=== PATIENT | male | born 1985 | race African-American/Black ===

== ENCOUNTER → 2016-03-24 | Outpatient (CLI) | payer OTHER ==
[~2016-03-24] MED LIST: ANAPROX DS550 MG PO; DARVOCET N 1001 TAB PO; HYDR12.5C PO; HYDR25T PO; HYDROCHLOROTHIA50 M1 PO; K-TAB20 MEQ PO; LISINOPRIL-HYDR1 TA1 PO; LOPRESSOR25 MG PO; MOTRIN800 MG PO; Motrin,Rufen800 MG PO; PRILOSEC20 M2 PO; STRIBILD TABLE1 EACH PO; ULTRAM50 MG PO; ZESTORETIC 12.51 TA1 PO; ZOFRAN ODT4 MG SL; Zofran4 MG PO
== END | disposition home or self-care (01) ==
LOC: RESCLI 02:31
DX: I10 Essential (primary) hypertension (principal); I16.0 Hypertensive urgency; J01.00 Acute maxillary sinusitis, unspecified; I48.91 Unspecified atrial fibrillation; Z21 Asymptomatic human immunodeficiency virus [HIV] infection status

== ENCOUNTER 2016-05-28 04:37 | Emergency (ER) | payer SELFPAY ==
[~2016-05-28] VITALS: Ht 182.8 cm; Wt 92.1 kg
[~2016-05-28 04:37] MED LIST changes: -ANAPROX DS550 MG PO; -ULTRAM50 MG PO
[2016-05-28] MEDS ORDERED: ANAPROX DS550 MG PO (05:46)
[2016-05-28] MEDS ORDERED: ULTRAM50 MG PO (05:46)
== END 2016-05-28 06:13 | disposition home or self-care (01) ==
LOC: ED 04:37
DX: S93.401A Sprain of unspecified ligament of right ankle, initial encounter (principal); F17.200 Nicotine dependence, unspecified, uncomplicated; I10 Essential (primary) hypertension; Z79.899 Other long term (current) drug therapy; X58.XXXA Exposure to other specified factors, initial encounter; Y93.89 Activity, other specified; Y92.89 Other specified places as the place of occurrence of the external cause; Y99.9 Unspecified external cause status

== ENCOUNTER 2016-07-05 21:39 | Inpatient (IN) | payer SELFPAY ==
[~2016-07-05] VITALS: Ht 185.4 cm; Wt 86.8 kg
[~2016-07-05 21:39] MED LIST changes: +ANAPROX DS550 MG PO; +ULTRAM50 MG PO
[2016-07-05 21:45] VITALS: BP 166/118
[2016-07-05 22:14] LABS: BASO % 0.2 % (0.0-1.0); EOS # 0.1 10*3/uL (0.0-0.4); EOS % 0.6 % (1.0-4.0); HEMATOCRIT 44.9 % (42.0-52.0); HEMOGLOBIN 15.4 g/dl (14.0-18.0); LYMPH # 2.6 10*3/uL (1.3-4.4); LYMPH % 27.3 % (27.0-41.0); MEAN CELL VOLUME 88.7 fl (80.0-94.0); MEAN CORPUSCULAR HGB 30.4 pg (27.0-31.0); MEAN CORPUSCULAR HGB CONC 34.3 g/dl (33.0-37.0); MEAN PLATELET VOLUME 9.7 fl (9.6-12.3); MONO # 0.6 10*3/uL (0.1-1.0); MONO % 6.4 % (3.0-9.0); NEUT # 6.3 10*3/uL (2.3-7.9); NEUT % 65.3 % (47.0-73.0); PLATELET COUNT AUTOMATED 249 10*3/uL (130-400); RED BLOOD COUNT 5.06 10*6/uL (4.50-5.90); RED CELL DISTRI WIDTH 12.7 % (0-14.5); WHITE BLOOD COUNT 9.7 10*3/uL (4.8-10.8)
[2016-07-05 22:26] LABS: ALBUMIN 4.5 gm/dl (3.1-4.5); ALKALINE PHOSPHATASE 77 U/L (45-117); BILIRUBIN, TOTAL 0.9 mg/dl (0.2-1.0); BUN 10 mg/dl (7-24); CARBON DIOXIDE 22 mmol/L (21-32); CHLORIDE 101 mmol/L (98-107); EST GLOM FILT AFRICAN AMERICAN > 60 ml/min; GLUCOSE 131 mg/dL (65-99); POTASSIUM 3.4 mmol/L (3.5-5.1); SGOT/AST 53 IU/L (3-35); SGPT/ALT 106 U/L (12-78); SODIUM 136 mmol/L (136-145); TOTAL PROTEIN 8.9 gm/dL (6.4-8.2)
[2016-07-05 22:50] VITALS: BP 162/96
[2016-07-05 23:00] VITALS: BP 168/88
[2016-07-05 23:25] VITALS: BP 168/88
[2016-07-06] VITALS (7 sets, daily range): BP systolic 148–166; BP diastolic 72–102
[2016-07-06 00:45] LABS: CKMB < 0.5 ng/ml (0.5-3.6); CPK 177 U/L (39-308); TROPONIN I < 0.015 ng/ml (<0.045)
[2016-07-06 06:35] LABS: BASO % 0.1 % (0.0-1.0); CKMB 0.7 ng/ml (0.5-3.6); CPK 154 U/L (39-308); EOS # 0.1 10*3/uL (0.0-0.4); EOS % 1.2 % (1.0-4.0); HEMATOCRIT 41.8 % (42.0-52.0); HEMOGLOBIN 14.2 g/dl (14.0-18.0); LYMPH % 37.5 % (27.0-41.0); MEAN CELL VOLUME 89.9 fl (80.0-94.0); MEAN CORPUSCULAR HGB 30.5 pg (27.0-31.0); MEAN PLATELET VOLUME 9.8 fl (9.6-12.3); MONO # 0.7 10*3/uL (0.1-1.0); MONO % 8.2 % (3.0-9.0); NEUT # 4.2 10*3/uL (2.3-7.9); NEUT % 52.8 % (47.0-73.0); PLATELET COUNT AUTOMATED 233 10*3/uL (130-400); RED BLOOD COUNT 4.65 10*6/uL (4.50-5.90); RED CELL DISTRI WIDTH 12.7 % (0-14.5)
[2016-07-06 06:45] LABS: TROPONIN I < 0.015 ng/ml (<0.045)
[2016-07-06 06:53] LABS: PROTHROMBIN TIME 10.8 SECONDS (9.0-12.4)
[2016-07-06 07:05] LABS: ALBUMIN 3.9 gm/dl (3.1-4.5); BILIRUBIN, TOTAL 0.9 mg/dl (0.2-1.0); BUN 9 mg/dl (7-24); CARBON DIOXIDE 25 mmol/L (21-32); CHLORIDE 102 mmol/L (98-107); CHOLESTEROL 236 mg/dL (<200); EST GLOM FILT AFRICAN AMERICAN > 60 ml/min; FREE T4 0.78 ng/dl (0.76-1.46); GLUCOSE 97 mg/dL (65-99); MAGNESIUM 2.4 mg/dL (1.5-2.1); POTASSIUM 3.6 mmol/L (3.5-5.1); SGOT/AST 41 IU/L (3-35); SGPT/ALT 87 U/L (12-78); SODIUM 137 mmol/L (136-145); TRIGLYCERIDES 327 mg/dl (<150); VLDL CHOLESTEROL 65 mg/dL (6-40)
[2016-07-06 07:12] LABS: ALKALINE PHOSPHATASE 69 U/L (45-117); HDL CHOLESTEROL 59 mg/dl (40-60); LDL CHOLESTEROL 112 mg/dL (9-159); PHOSPHOROUS 3.2 mg/dL (2.5-4.9); TOTAL PROTEIN 7.8 gm/dL (6.4-8.2)
[2016-07-06 08:51] LABS: HEMOGLOBIN A1c 5.2 % (4.8-5.6)
[2016-07-06 10:39] LABS: VITAMIN D, 25-HYDROXY 7.7 ng/mL (30-100)
[2016-07-06 10:40] LABS: FOLIC ACID 18.43 ng/mL (>5.38)
[2016-07-06 12:15] LABS: CPK 140 U/L (39-308)
[2016-07-06 12:16] LABS: CKMB < 0.5 ng/ml (0.5-3.6); TROPONIN I < 0.015 ng/ml (<0.045)
[2016-07-07] VITALS: BP 158/98
[2016-07-07 08:00] VITALS: BP 148/100
[2016-07-07 12:00] VITALS: BP 148/102
[2016-07-07] MEDS ORDERED: ATORVASTATIN CA40 M1 PO (12:10)
[2016-07-07] MEDS ORDERED: D-1000 185 MG-11 TAB PO (12:10)
[2016-07-07] MEDS ORDERED: HYDR25T PO (12:10)
[2016-07-07] MEDS ORDERED: Zestril,Prinivi40 MG PO (12:10)
[2016-07-07 14:18] VITALS: BP 138/82
== END 2016-07-07 14:25 | disposition home or self-care (01) | DRG 871 ==
LOC: ED 21:39 → EDHOLD 22:32 → 4E 22:45
PROVIDERS: Internal Medicine; Student in an Organized Health Care Education/Training Program
DX: A41.9 Sepsis, unspecified organism (principal); K85.90 Acute pancreatitis without necrosis or infection, unspecified; N39.0 Urinary tract infection, site not specified; F17.200 Nicotine dependence, unspecified, uncomplicated; E55.9 Vitamin D deficiency, unspecified; F10.20 Alcohol dependence, uncomplicated; E78.2 Mixed hyperlipidemia; I10 Essential (primary) hypertension; E87.6 Hypokalemia; Z82.5 Family history of asthma and other chronic lower respiratory diseases; Z82.49 Family history of ischemic heart disease and other diseases of the circulatory system; Z83.3 Family history of diabetes mellitus; Z79.899 Other long term (current) drug therapy

== ENCOUNTER → 2016-10-14 | Outpatient (CLI) | payer OTHER ==
[~2016-10-14] MED LIST changes: +ATORVASTATIN CA40 M1 PO; +D-1000 185 MG-11 TAB PO; +Zestril,Prinivi40 MG PO
== END | disposition home or self-care (01) ==
LOC: RESCLI 10-13 03:11
DX: I10 Essential (primary) hypertension (principal); I16.0 Hypertensive urgency; K21.9 Gastro-esophageal reflux disease without esophagitis; E78.5 Hyperlipidemia, unspecified; I48.91 Unspecified atrial fibrillation; Z21 Asymptomatic human immunodeficiency virus [HIV] infection status

== ENCOUNTER 2017-04-14 17:41 | Emergency (ER) | payer OTHER ==
[~2017-04-14] VITALS: Wt 86.2 kg
[2017-04-14 18:20] LABS: BASO % 0.4 % (0.0-1.0); EOS # 0.1 10*3/uL (0.0-0.4); EOS % 1.5 % (1.0-4.0); HEMATOCRIT 43.5 % (42.0-52.0); LYMPH # 2.9 10*3/uL (1.3-4.4); MEAN CELL VOLUME 88.1 fl (80.0-94.0); MEAN CORPUSCULAR HGB 30.4 pg (27.0-31.0); MEAN CORPUSCULAR HGB CONC 34.5 g/dl (33.0-37.0); MEAN PLATELET VOLUME 9.8 fl (9.6-12.3); MONO # 0.6 10*3/uL (0.1-1.0); NEUT # 3.4 10*3/uL (2.3-7.9); PLATELET COUNT AUTOMATED 235 10*3/uL (130-400); RED BLOOD COUNT 4.94 10*6/uL (4.50-5.90); RED CELL DISTRI WIDTH 13.4 % (0-14.5); WHITE BLOOD COUNT 7.2 10*3/uL (4.8-10.8)
[2017-04-14 18:38] LABS: ALBUMIN 3.8 gm/dl (3.1-4.5); ALKALINE PHOSPHATASE 50 U/L (45-117); BUN 10 mg/dl (7-24); CHLORIDE 104 mmol/L (98-107); CREATININE 1.06 mg/dL (0.70-1.30); LIPASE 471 U/L (73-393); POTASSIUM 4.5 mmol/L (3.5-5.1); SGOT/AST 32 IU/L (3-35); SGPT/ALT 53 U/L (12-78); SODIUM 137 mmol/L (136-145); TOTAL PROTEIN 7.6 gm/dL (6.4-8.2)
[2017-04-14] MEDS ORDERED: Zofran4 MG PO (18:51)
== END 2017-04-14 18:59 | disposition home or self-care (01) ==
LOC: ED 17:41
PROVIDERS: Physician Assistant
DX: K86.1 Other chronic pancreatitis (principal); R10.9 Unspecified abdominal pain; F17.200 Nicotine dependence, unspecified, uncomplicated; Z79.899 Other long term (current) drug therapy

== ENCOUNTER 2017-04-15 17:20 | Emergency (ER) | payer OTHER ==
[~2017-04-15] VITALS: Ht 182.8 cm; Wt 86.2 kg
[2017-04-15 19:03] LABS: BASO % 0.1 % (0.0-1.0); EOS # 0.1 10*3/uL (0.0-0.4); EOS % 1.7 % (1.0-4.0); HEMATOCRIT 46.1 % (42.0-52.0); HEMOGLOBIN 15.9 g/dl (14.0-18.0); LYMPH % 35.5 % (27.0-41.0); MEAN CELL VOLUME 86.8 fl (80.0-94.0); MEAN CORPUSCULAR HGB 29.9 pg (27.0-31.0); MEAN CORPUSCULAR HGB CONC 34.5 g/dl (33.0-37.0); MEAN PLATELET VOLUME 9.8 fl (9.6-12.3); MONO # 0.6 10*3/uL (0.1-1.0); MONO % 7.1 % (3.0-9.0); NEUT # 4.6 10*3/uL (2.3-7.9); NEUT % 55.4 % (47.0-73.0); PLATELET COUNT AUTOMATED 264 10*3/uL (130-400); RED BLOOD COUNT 5.31 10*6/uL (4.50-5.90); RED CELL DISTRI WIDTH 13.4 % (0-14.5); WHITE BLOOD COUNT 8.3 10*3/uL (4.8-10.8)
[2017-04-15 19:13] LABS: ACT PARTIAL THROMBO TIME 26.2 SECONDS (20.8-31.5); INTERNATIONAL NORM RATIO 0.9 (2.0-3.5)
[2017-04-15 19:27] LABS: ALBUMIN 4.1 gm/dl (3.1-4.5); ALKALINE PHOSPHATASE 52 U/L (45-117); BUN 15 mg/dl (7-24); CHLORIDE 102 mmol/L (98-107); CREATININE 1.51 mg/dL (0.70-1.30); LIPASE 208 U/L (73-393); POTASSIUM 3.9 mmol/L (3.5-5.1); SGOT/AST 26 IU/L (3-35); SGPT/ALT 49 U/L (12-78); SODIUM 137 mmol/L (136-145)
== END 2017-04-15 23:26 | disposition home or self-care (01) ==
LOC: ED 17:20
PROVIDERS: Emergency Medicine
DX: K92.2 Gastrointestinal hemorrhage, unspecified (principal); E78.5 Hyperlipidemia, unspecified; I10 Essential (primary) hypertension; F17.200 Nicotine dependence, unspecified, uncomplicated; Z79.899 Other long term (current) drug therapy

== ENCOUNTER 2017-05-19 10:43 | Inpatient (IN) | payer OTHER ==
[~2017-05-19] VITALS: Ht 180.3 cm; Wt 83.3 kg
[2017-05-19 10:55] VITALS: BP 148/78
[2017-05-19 11:18] LABS: BASO % 0.2 % (0.0-1.0); EOS % 0.4 % (1.0-4.0); HEMOGLOBIN 15.5 g/dl (14.0-18.0); LYMPH # 2.8 10*3/uL (1.3-4.4); LYMPH % 28.6 % (27.0-41.0); MEAN CELL VOLUME 87.1 fl (80.0-94.0); MEAN CORPUSCULAR HGB 29.4 pg (27.0-31.0); MEAN CORPUSCULAR HGB CONC 33.7 g/dl (33.0-37.0); MEAN PLATELET VOLUME 9.7 fl (9.6-12.3); MONO # 0.6 10*3/uL (0.1-1.0); MONO % 6.3 % (3.0-9.0); NEUT # 6.2 10*3/uL (2.3-7.9); NEUT % 64.3 % (47.0-73.0); PLATELET COUNT AUTOMATED 263 10*3/uL (130-400); RED BLOOD COUNT 5.28 10*6/uL (4.50-5.90); RED CELL DISTRI WIDTH 13.5 % (0-14.5); WHITE BLOOD COUNT 9.7 10*3/uL (4.8-10.8)
[2017-05-19 11:32] LABS: ALBUMIN 4.4 gm/dl (3.1-4.5); ALKALINE PHOSPHATASE 51 U/L (45-117); BUN 14 mg/dl (7-24); CHLORIDE 99 mmol/L (98-107); CREATININE 1.22 mg/dL (0.70-1.30); POTASSIUM 3.4 mmol/L (3.5-5.1); SGOT/AST 36 IU/L (3-35); SGPT/ALT 43 U/L (12-78); SODIUM 136 mmol/L (136-145); TOTAL PROTEIN 8.3 gm/dL (6.4-8.2)
[2017-05-19] MEDS ORDERED: ZESTORETIC 20-1 EACH PO (15:04)
[2017-05-19 16:00] VITALS: BP 169/115
[2017-05-19 20:00] VITALS: BP 139/79
[2017-05-20] VITALS (7 sets, daily range): BP systolic 128–146; BP diastolic 81–98
[2017-05-20 07:49] LABS: BASO % 0.3 % (0.0-1.0); EOS # 0.2 10*3/uL (0.0-0.4); EOS % 2.3 % (1.0-4.0); HEMATOCRIT 40.2 % (42.0-52.0); HEMOGLOBIN 13.6 g/dl (14.0-18.0); LYMPH # 3.5 10*3/uL (1.3-4.4); LYMPH % 46.2 % (27.0-41.0); MEAN CELL VOLUME 90.1 fl (80.0-94.0); MEAN CORPUSCULAR HGB 30.5 pg (27.0-31.0); MEAN CORPUSCULAR HGB CONC 33.8 g/dl (33.0-37.0); MEAN PLATELET VOLUME 9.9 fl (9.6-12.3); MONO # 0.6 10*3/uL (0.1-1.0); MONO % 7.5 % (3.0-9.0); NEUT # 3.3 10*3/uL (2.3-7.9); NEUT % 43.4 % (47.0-73.0); PLATELET COUNT AUTOMATED 227 10*3/uL (130-400); RED BLOOD COUNT 4.46 10*6/uL (4.50-5.90); RED CELL DISTRI WIDTH 13.9 % (0-14.5); WHITE BLOOD COUNT 7.5 10*3/uL (4.8-10.8)
[2017-05-20 08:02] LABS: ACT PARTIAL THROMBO TIME 25.7 SECONDS (20.8-31.5)
[2017-05-20 08:09] LABS: ALBUMIN 3.5 gm/dl (3.1-4.5); ALKALINE PHOSPHATASE 41 U/L (45-117); BUN 12 mg/dl (7-24); CHLORIDE 108 mmol/L (98-107); CHOLESTEROL 197 mg/dL (<200); CREATININE 1.04 mg/dL (0.70-1.30); HDL CHOLESTEROL 39 mg/dl (40-60); LDL CHOLESTEROL 131 mg/dL (9-159); LIPASE 437 U/L (73-393); PHOSPHOROUS 2.7 mg/dL (2.5-4.9); POTASSIUM 4.1 mmol/L (3.5-5.1); SGOT/AST 27 IU/L (3-35); SGPT/ALT 38 U/L (12-78); SODIUM 141 mmol/L (136-145); TOTAL PROTEIN 6.8 gm/dL (6.4-8.2); TRIGLYCERIDES 134 mg/dl (<150); VLDL CHOLESTEROL 27 mg/dL (6-40)
[2017-05-20 09:21] LABS: VITAMIN D, 25-HYDROXY 8.8 ng/mL (30-100)
[2017-05-21] VITALS: BP 143/91
[2017-05-21 07:19] LABS: BASO % 0.4 % (0.0-1.0); EOS # 0.1 10*3/uL (0.0-0.4); EOS % 1.8 % (1.0-4.0); HEMOGLOBIN 12.4 g/dl (14.0-18.0); LYMPH # 4.1 10*3/uL (1.3-4.4); LYMPH % 58.3 % (27.0-41.0); MEAN CELL VOLUME 90.2 fl (80.0-94.0); MEAN CORPUSCULAR HGB 30.2 pg (27.0-31.0); MEAN CORPUSCULAR HGB CONC 33.5 g/dl (33.0-37.0); MEAN PLATELET VOLUME 9.9 fl (9.6-12.3); MONO # 0.4 10*3/uL (0.1-1.0); MONO % 5.9 % (3.0-9.0); NEUT # 2.4 10*3/uL (2.3-7.9); NEUT % 33.5 % (47.0-73.0); PLATELET COUNT AUTOMATED 219 10*3/uL (130-400); RED CELL DISTRI WIDTH 13.7 % (0-14.5); WHITE BLOOD COUNT 7.1 10*3/uL (4.8-10.8)
[2017-05-21 07:48] LABS: BUN 7 mg/dl (7-24); CHLORIDE 105 mmol/L (98-107); CREATININE 0.92 mg/dL (0.70-1.30); LIPASE 238 U/L (73-393); POTASSIUM 3.8 mmol/L (3.5-5.1); SODIUM 138 mmol/L (136-145)
[2017-05-21 08:00] VITALS: BP 136/88
[2017-05-21 12:00] VITALS: BP 146/89
[2017-05-21] MEDS ORDERED: GENVOYA TABLET1 EACH PO (13:49)
== END 2017-05-21 15:02 | disposition home or self-care (01) | DRG 438 ==
LOC: ED 10:43 → 5E 14:23 → EDHOLD 14:23 → 5E 14:24
PROVIDERS: Internal Medicine Nephrology; Nurse Practitioner
DX: K85.90 Acute pancreatitis without necrosis or infection, unspecified (principal); K65.9 Peritonitis, unspecified; D72.818 Other decreased white blood cell count; E87.6 Hypokalemia; E80.6 Other disorders of bilirubin metabolism; Z21 Asymptomatic human immunodeficiency virus [HIV] infection status; R73.9 Hyperglycemia, unspecified; I10 Essential (primary) hypertension; E55.9 Vitamin D deficiency, unspecified; E78.5 Hyperlipidemia, unspecified; K86.1 Other chronic pancreatitis; F17.210 Nicotine dependence, cigarettes, uncomplicated; Z82.5 Family history of asthma and other chronic lower respiratory diseases; Z87.19 Personal history of other diseases of the digestive system; Z82.49 Family history of ischemic heart disease and other diseases of the circulatory system; Z79.899 Other long term (current) drug therapy; Z71.6 Tobacco abuse counseling

== ENCOUNTER → 2017-06-07 | Outpatient (CLI) | payer OTHER ==
[~2017-06-07] MED LIST changes: +GENVOYA TABLET1 EACH PO; +ZESTORETIC 20-1 EACH PO
== END | disposition home or self-care (01) ==
LOC: RESCLI 00:34
DX: K21.9 Gastro-esophageal reflux disease without esophagitis (principal); I10 Essential (primary) hypertension; E55.9 Vitamin D deficiency, unspecified; K85.80 Other acute pancreatitis without necrosis or infection; Z21 Asymptomatic human immunodeficiency virus [HIV] infection status; Z72.0 Tobacco use; Z71.6 Tobacco abuse counseling

== ENCOUNTER 2017-07-09 06:03 | Emergency (ER) | payer OTHER ==
[~2017-07-09] VITALS: Ht 172.7 cm; Wt 83.9 kg
[2017-07-09] MEDS ORDERED: SEPTDS PO (06:26)
== END 2017-07-09 06:42 | disposition home or self-care (01) ==
LOC: ED 06:03
DX: R07.89 Other chest pain (principal); J40 Bronchitis, not specified as acute or chronic; I10 Essential (primary) hypertension; E78.5 Hyperlipidemia, unspecified; F17.200 Nicotine dependence, unspecified, uncomplicated; Z79.899 Other long term (current) drug therapy

== ENCOUNTER 2017-08-23 21:33 | Inpatient (IN) | payer MEDICAID ==
[~2017-08-23] VITALS: Ht 185.4 cm; Wt 77.7 kg
[~2017-08-23 21:33] MED LIST changes: +SEPTDS PO
[2017-08-23 21:40] VITALS: BP 178/101
[2017-08-23 21:54] VITALS: BP 176/117
[2017-08-23 22:19] VITALS: BP 176/117
[2017-08-23 22:36] LABS: BASO % 0.1 % (0.0-1.0); EOS % 0.1 % (1.0-4.0); HEMATOCRIT 51.3 % (42.0-52.0); HEMOGLOBIN 17.1 g/dl (14.0-18.0); LYMPH # 1.8 10*3/uL (1.3-4.4); LYMPH % 22.4 % (27.0-41.0); MEAN CELL VOLUME 89.2 fl (80.0-94.0); MEAN CORPUSCULAR HGB 29.7 pg (27.0-31.0); MEAN CORPUSCULAR HGB CONC 33.3 g/dl (33.0-37.0); MEAN PLATELET VOLUME 9.9 fl (9.6-12.3); MONO # 0.7 10*3/uL (0.1-1.0); MONO % 8.8 % (3.0-9.0); NEUT # 5.4 10*3/uL (2.3-7.9); NEUT % 68.3 % (47.0-73.0); PLATELET COUNT AUTOMATED 274 10*3/uL (130-400); RED BLOOD COUNT 5.75 10*6/uL (4.50-5.90); RED CELL DISTRI WIDTH 14.1 % (0-14.5); WHITE BLOOD COUNT 7.9 10*3/uL (4.8-10.8)
[2017-08-23 22:52] LABS: ALBUMIN 4.3 gm/dl (3.1-4.5); ALKALINE PHOSPHATASE 66 U/L (45-117); BUN 14 mg/dl (7-24); CHLORIDE 105 mmol/L (98-107); LIPASE 716 U/L (73-393); POTASSIUM 4.1 mmol/L (3.5-5.1); SGOT/AST 27 IU/L (3-35); SGPT/ALT 50 U/L (12-78); SODIUM 140 mmol/L (136-145)
[2017-08-24] VITALS (7 sets, daily range): BP systolic 142–170; BP diastolic 82–101
[2017-08-24 13:27] LABS: BILIRUBIN 1+ (NEGATIVE); BLOOD NEGATIVE (NEGATIVE); CLARITY CLEAR (CLEAR); COLOR YELLOW (YELLOW); GLUCOSE NEGATIVE (NEGATIVE); KETONE TRACE (NEGATIVE); LEUKO ESTERASE NEGATIVE (NEGATIVE); NITRITE NEGATIVE (NEGATIVE); SPECIFIC GRAVITY 1.015 (1.005-1.030)
[2017-08-24 13:38] LABS: MUCOUS 1+; RBC 0-2 rbc/hpf (0-2); WBC 0-2 wbc/hpf (0-5)
== END 2017-08-24 21:42 | disposition left against medical advice (07) | DRG 440 ==
LOC: ED 21:33 → EDHOLD 08-24 02:13 → 5E 08-24 02:13
PROVIDERS: Emergency Medicine Emergency Medical Services
DX: K85.20 Alcohol induced acute pancreatitis without necrosis or infection (principal); E83.41 Hypermagnesemia; R00.1 Bradycardia, unspecified; R06.82 Tachypnea, not elsewhere classified; R73.9 Hyperglycemia, unspecified; Z21 Asymptomatic human immunodeficiency virus [HIV] infection status; E78.5 Hyperlipidemia, unspecified; I10 Essential (primary) hypertension; Z72.0 Tobacco use; Z83.3 Family history of diabetes mellitus; Z80.9 Family history of malignant neoplasm, unspecified; Z82.49 Family history of ischemic heart disease and other diseases of the circulatory system; Z84.89 Family history of other specified conditions

== ENCOUNTER 2018-12-07 11:47 | Inpatient (IN) | payer OTHER ==
[~2018-12-07] VITALS: Ht 182.8 cm; Wt 78.1 kg
[~2018-12-07 11:47] MED LIST changes: +CELEXA20 MG PO; +ROPINIROLE HYD0.5 MG PO
[2018-12-07 12:43] VITALS: BP 142/99
--- NOTE | 2018-12-07 12:43 | NUR ---
A 33, admitted to , under the services of JAYLEEN Forte DO with a diagnosis of OPIATE WITHDRAWAL. Chief complaint is WITHRAWAL. Patient arrived via ambulatory from [place]. Monitor applied. Initial assessment completed. Vital signs taken and recorded. JAYLEEN FORTE DO notified of admission to the unit. Orders received. See assessment for past medical history, medications and allergies. Patient and/or family oriented to unit. RAE Simmons.[facility] visitation policy reviewed. Clothing/patient valuable form completed. FLORIN RODRIGUEZ
--- NOTE | 2018-12-07 13:15 | NUR ---
DR. SOOD STATED THAT THE PATIENT DOES NOT NEED AN IV AT THIS TIME.
[2018-12-07 13:22] LABS: BASO % 0.2 % (0.0-1.0); EOS # 0.2 10*3/uL (0.0-0.4); EOS % 2.2 % (1.0-4.0); HEMATOCRIT 40.8 % (42.0-52.0); HEMOGLOBIN 13.4 g/dl (14.0-18.0); LYMPH # 2.9 10*3/uL (1.3-4.4); LYMPH % 34.5 % (27.0-41.0); MEAN CELL VOLUME 87.2 fl (80.0-94.0); MEAN CORPUSCULAR HGB 28.6 pg (27.0-31.0); MEAN CORPUSCULAR HGB CONC 32.8 g/dl (33.0-37.0); MEAN PLATELET VOLUME 9.3 fl (9.6-12.3); MONO # 0.6 10*3/uL (0.1-1.0); MONO % 7.4 % (3.0-9.0); NEUT # 4.6 10*3/uL (2.3-7.9); NEUT % 55.5 % (47.0-73.0); PLATELET COUNT AUTOMATED 302 10*3/uL (130-400); RED BLOOD COUNT 4.68 10*6/uL (4.50-5.90); RED CELL DISTRI WIDTH 14.7 % (0-14.5); WHITE BLOOD COUNT 8.3 10*3/uL (4.8-10.8)
[2018-12-07 13:29] LABS: INTERNATIONAL NORM RATIO 0.9 (2.0-3.5)
[2018-12-07 13:34] LABS: ALBUMIN 3.5 gm/dl (3.1-4.5); ALKALINE PHOSPHATASE 64 U/L (45-117); BUN 10 mg/dl (7-24); CHLORIDE 105 mmol/L (98-107); CREATININE 0.89 mg/dL (0.70-1.30); ETHYL ALCOHOL < 3.0 mg/dl (<3); POTASSIUM 3.7 mmol/L (3.5-5.1); SGOT/AST 20 IU/L (3-35); SGPT/ALT 25 U/L (12-78); SODIUM 136 mmol/L (136-145); TOTAL PROTEIN 7.9 gm/dL (6.4-8.2)
--- NOTE | 2018-12-07 13:45 | NUR ---
INTO ROOM TO TELL HIM THAT I NEED URINE SAMPLE. NAME CALLED. AFTER FIVE TIMES HE AROUSES SLOWLY AND ATTEMPTS TO OPEN EYES.
--- NOTE | 2018-12-07 15:01 | NUR ---
INTO ROOM, DROWSY. PHONE IS UP TO EAR WITH NO DIAL TONE.
[2018-12-07 15:14] LABS: BILIRUBIN NEGATIVE (NEGATIVE); BLOOD NEGATIVE (NEGATIVE); CLARITY CLEAR (CLEAR); COLOR YELLOW (YELLOW); GLUCOSE NEGATIVE (NEGATIVE); KETONE NEGATIVE (NEGATIVE); LEUKO ESTERASE NEGATIVE (NEGATIVE); NITRITE NEGATIVE (NEGATIVE); PH 6.5 (5.0-9.0); UROBILINOGEN 0.2 E.U./dl (0.2-1.0)
[2018-12-07 15:26] LABS: URINE AMPHETAMINES < 1000 (1000ng/ml); URINE BARBITURATES < 200 (200ng/ml); URINE BENZODIAZEPINES > 200 (200ng/ml); URINE CANNABINOIDS (THC) < 50 (50ng/ml); URINE COCAINE > 300 (300ng/ml); URINE METHADONE < 300 (300ng/ml); URINE OPIATES < 300 (300ng/ml)
[2018-12-07 15:32] LABS: URINE PHENCYCLIDINE < 25 (25ng/ml)
[2018-12-07 16:00] VITALS: BP 160/100
--- NOTE | 2018-12-07 17:42 | NUR ---
DR. SOOD NOTIFIED OF BLOOD PRESSURE. SHE WILL PUT ORDERS IN.
--- NOTE | 2018-12-07 17:44 | NUR ---
ORDERED TO GIVE SUBUTEX.
--- NOTE | 2018-12-07 17:56 | NUR ---
PATIENT MEETS [facility]. CINA=[id number]. PATIENT WANTS TO FOLLOW UP WITH [facility] IN [place] FOR OUTPATIENT TREATMENT. VINICIO HINKLE B.A. ROTO MIXER OPERATOR
[2018-12-07 20:00] VITALS: BP 158/82
[2018-12-08] VITALS: BP 163/105
[2018-12-08 08:00] VITALS: BP 153/96
--- NOTE | 2018-12-08 11:27 | NUR ---
PATIENT IS GOING TO FOLLOW UP WITH [facility] FOR MAT SERVICES. [place] STAFF WILL FOLLOW UP WITH PATIENT. VINICIO HINKLE B.A. INTAKE COORDIANTOR
[2018-12-08 16:00] VITALS: BP 148/97
--- NOTE | 2018-12-08 17:14 | NUR ---
ROUTINE SUBUTEX GIVEN AT THIS TIME. PT DENIES ANY NEED FOR PRN MEDS. WILL CONTINUE TO MONITOR. CALL LIGHT WITHIN REACH.
[2018-12-08 20:00] VITALS: BP 140/88; BP 143/94
--- NOTE | 2018-12-08 20:17 | NUR ---
Patient displaying withdrawal symptoms, including: irritability, anxiousness, restlessness and agitation. Scheduled/PRN medications provided, SEE EMAR. Will continue to monitor medication effectiveness.
--- NOTE | 2018-12-08 20:37 | NUR ---
24 HR chart check completed.
--- NOTE | 2018-12-08 23:00 | NUR ---
Patient resting. Responding to scheduled medications with fewer complaints of pain and anxiety.
[2018-12-09] VITALS: BP 129/56
--- NOTE | 2018-12-09 00:30 | NUR ---
SLEEPING. NO ACUTE DISTRESS NOTED. RESPIRATIONS EASY. VSS. CALL LIGHT WITHIN REACH
--- NOTE | 2018-12-09 03:00 | NUR ---
Patient SLEEPING. Responding to scheduled medications with fewer complaints of pain and anxiety.
--- NOTE | 2018-12-09 06:00 | NUR ---
Patient resting. Responding to scheduled medications with fewer complaints of pain and anxiety.
[2018-12-09 08:00] VITALS: BP 131/88
[2018-12-09 16:00] VITALS: BP 141/96
--- NOTE | 2018-12-09 16:19 | NUR ---
PATIENT IS GOING TO FOLLOW UP WITH [facility] FOR HIS AFTERCARE PLAN. PATIENT AGREES AND UNDERSTANDS HIS AFTERCARE PLAN. VINICIO HINKLE B.A. AGRICULTURAL ENGINEERING TEACHER
--- NOTE | 2018-12-09 19:38 | NUR ---
24 HR chart check completed.
[2018-12-09 20:00] VITALS: BP 133/81
--- NOTE | 2018-12-09 22:00 | NUR ---
Patient resting. Responding to scheduled medications with fewer complaints of pain and anxiety.
[2018-12-10] VITALS: BP 126/84
--- NOTE | 2018-12-10 00:30 | NUR ---
SLEEPING. NO DISTRESS NOTED. RESPIRATIONS EASY. VSS. CALL LIGHT WITHIN REACH
--- NOTE | 2018-12-10 06:00 | NUR ---
slept throughout night with no distress noted. respirations easy. call light within reach. no voiced complaints this shift
[2018-12-10 06:54] LABS: BASO % 0.3 % (0.0-1.0); EOS # 0.1 10*3/uL (0.0-0.4); EOS % 1.8 % (1.0-4.0); HEMATOCRIT 41.9 % (42.0-52.0); HEMOGLOBIN 13.6 g/dl (14.0-18.0); LYMPH # 3.8 10*3/uL (1.3-4.4); LYMPH % 52.7 % (27.0-41.0); MEAN CELL VOLUME 85.7 fl (80.0-94.0); MEAN CORPUSCULAR HGB 27.8 pg (27.0-31.0); MEAN CORPUSCULAR HGB CONC 32.5 g/dl (33.0-37.0); MEAN PLATELET VOLUME 9.6 fl (9.6-12.3); MONO # 0.5 10*3/uL (0.1-1.0); MONO % 7.5 % (3.0-9.0); NEUT # 2.7 10*3/uL (2.3-7.9); NEUT % 37.6 % (47.0-73.0); PLATELET COUNT AUTOMATED 288 10*3/uL (130-400); RED BLOOD COUNT 4.89 10*6/uL (4.50-5.90); RED CELL DISTRI WIDTH 14.6 % (0-14.5); WHITE BLOOD COUNT 7.2 10*3/uL (4.8-10.8)
[2018-12-10 07:09] LABS: CREATININE 1.03 mg/dL (0.70-1.30)
[2018-12-10 08:00] VITALS: BP 126/75
--- NOTE | 2018-12-10 11:28 | NUR ---
[facility] Discharge instructions reviewed with patient/family. Patient receptive and verbalizes understanding. Follow-up care arranged. Written instructions given to patient/family. KYE BOWMAN
== END 2018-12-10 11:30 | disposition home or self-care (01) | DRG 773 ==
LOC: 5E 11:47
PROVIDERS: ADMIT Family Medicine
DX: F11.23 Opioid dependence with withdrawal (principal); I10 Essential (primary) hypertension; E78.5 Hyperlipidemia, unspecified; F17.210 Nicotine dependence, cigarettes, uncomplicated; F14.10 Cocaine abuse, uncomplicated; E55.9 Vitamin D deficiency, unspecified; Z21 Asymptomatic human immunodeficiency virus [HIV] infection status; K86.0 Alcohol-induced chronic pancreatitis; Z83.3 Family history of diabetes mellitus; Z82.49 Family history of ischemic heart disease and other diseases of the circulatory system; Z84.89 Family history of other specified conditions; Z79.899 Other long term (current) drug therapy; Z71.6 Tobacco abuse counseling

== ENCOUNTER 2019-01-06 17:44 | Inpatient (IN) | payer OTHER ==
[~2019-01-06] VITALS: Ht 182.9 cm; Wt 77.1 kg
[2019-01-06 17:44] VITALS: BP 152/106
--- NOTE | 2019-01-06 17:55 | NUR ---
MEDIC STUDENT AT BEDSIDE TO ASSESS AND PLACE IV
--- NOTE | 2019-01-06 18:51 | NUR ---
PT TO CT
[2019-01-06 18:57] LABS: BASO % 0.2 % (0.0-1.0); EOS # 0.1 10*3/uL (0.0-0.4); EOS % 1.7 % (1.0-4.0); HEMATOCRIT 38.5 % (42.0-52.0); HEMOGLOBIN 12.6 g/dl (14.0-18.0); LYMPH # 2.7 10*3/uL (1.3-4.4); LYMPH % 41.5 % (27.0-41.0); MEAN CELL VOLUME 87.5 fl (80.0-94.0); MEAN CORPUSCULAR HGB 28.6 pg (27.0-31.0); MEAN CORPUSCULAR HGB CONC 32.7 g/dl (33.0-37.0); MEAN PLATELET VOLUME 9.3 fl (9.6-12.3); MONO # 0.7 10*3/uL (0.1-1.0); MONO % 10.5 % (3.0-9.0); NEUT # 2.9 10*3/uL (2.3-7.9); NEUT % 45.9 % (47.0-73.0); PLATELET COUNT AUTOMATED 229 10*3/uL (130-400); RED CELL DISTRI WIDTH 14.8 % (0-14.5); WHITE BLOOD COUNT 6.4 10*3/uL (4.8-10.8)
--- NOTE | 2019-01-06 19:03 | NUR ---
RETURN FROM CT. CONDITION STABLE.
--- NOTE | 2019-01-06 19:12 | NUR ---
PROVIDED PT WITH URINAL AND INSTRUCTED TO LEAVE URINE SPECIMEN. VERBALIZED UNDERSTANDING.
[2019-01-06 19:14] LABS: ALBUMIN 3.6 gm/dl (3.1-4.5); ALKALINE PHOSPHATASE 63 U/L (45-117); BUN 12 mg/dl (7-24); CHLORIDE 98 mmol/L (98-107); CREATININE 1.11 mg/dL (0.70-1.30); LIPASE 125 U/L (73-393); POTASSIUM 3.4 mmol/L (3.5-5.1); SGOT/AST 154 IU/L (3-35); SGPT/ALT 347 U/L (12-78); SODIUM 134 mmol/L (136-145); TOTAL PROTEIN 7.5 gm/dL (6.4-8.2)
--- NOTE | 2019-01-06 19:17 | NUR ---
LA 2.1 MATEUSZ AWARE
[2019-01-06 20:27] LABS: BILIRUBIN NEGATIVE (NEGATIVE); BLOOD NEGATIVE (NEGATIVE); CLARITY CLEAR (CLEAR); COLOR YELLOW (YELLOW); GLUCOSE NEGATIVE (NEGATIVE); KETONE NEGATIVE (NEGATIVE); LEUKO ESTERASE NEGATIVE (NEGATIVE); NITRITE NEGATIVE (NEGATIVE); PH 7.5 (5.0-9.0); UROBILINOGEN 0.2 E.U./dl (0.2-1.0)
[2019-01-06 21:00] VITALS: BP 148/90
[2019-01-06 21:44] VITALS: BP 125/91
--- NOTE | 2019-01-06 21:44 | NUR ---
Time: 2143 A 33 year old MALE admitted to 5E under services of JUAQUIN FUNK DO. Pt. arrived via wheel chair from ER. Chief complaint: ABDOMINAL PAIN. RAFAL CASEY
[2019-01-06] MEDS ORDERED: GENVOYA TABLET1 EACH PO (21:56)
--- NOTE | 2019-01-06 21:58 | NUR ---
NOTIFIED DR. AGUILAR THAT PATIENT'S MED REC IS UP TO DATE AND PATIENT ASKING TO EAT SINCE HE IS NOT NAUSEOUS AND IS NOT HAVING PAIN. DR. AGUILAR STATED TO KEEP HIM NPO.
[2019-01-07] VITALS: BP 148/95
--- NOTE | 2019-01-07 00:45 | NUR ---
PATIENT ASLEEP IN BED. IV FLUIDS INFUSING ORDERED. RESPIRATIONS EVEN AND UNLABORED. CALL LIGHT WITHIN REACH.
--- NOTE | 2019-01-07 01:52 | NUR ---
24 HR chart check completed.
[2019-01-07 06:32] LABS: BASO % 0.2 % (0.0-1.0); EOS # 0.1 10*3/uL (0.0-0.4); EOS % 2.3 % (1.0-4.0); HEMATOCRIT 36.4 % (42.0-52.0); HEMOGLOBIN 11.7 g/dl (14.0-18.0); LYMPH # 2.4 10*3/uL (1.3-4.4); LYMPH % 42.7 % (27.0-41.0); MEAN CELL VOLUME 87.1 fl (80.0-94.0); MEAN CORPUSCULAR HGB CONC 32.1 g/dl (33.0-37.0); MEAN PLATELET VOLUME 9.6 fl (9.6-12.3); MONO # 0.7 10*3/uL (0.1-1.0); MONO % 12.7 % (3.0-9.0); NEUT # 2.4 10*3/uL (2.3-7.9); NEUT % 41.9 % (47.0-73.0); PLATELET COUNT AUTOMATED 232 10*3/uL (130-400); RED BLOOD COUNT 4.18 10*6/uL (4.50-5.90); RED CELL DISTRI WIDTH 15.3 % (0-14.5); WHITE BLOOD COUNT 5.6 10*3/uL (4.8-10.8)
[2019-01-07 06:59] LABS: ALKALINE PHOSPHATASE 63 U/L (45-117); BUN 11 mg/dl (7-24); CHLORIDE 107 mmol/L (98-107); CREATININE 0.89 mg/dL (0.70-1.30); PHOSPHOROUS 3.7 mg/dL (2.5-4.9); POTASSIUM 4.1 mmol/L (3.5-5.1); SGOT/AST 149 IU/L (3-35); SGPT/ALT 307 U/L (12-78); SODIUM 139 mmol/L (136-145); TOTAL PROTEIN 6.5 gm/dL (6.4-8.2)
[2019-01-07 08:00] VITALS: BP 139/100
[2019-01-07 12:00] VITALS: BP 115/81; BP 133/87
--- NOTE | 2019-01-07 16:00 | NUR ---
PATIENT PULLED OUT IV, STATED LEAVING AMA, SIGNED AMA PAPER AND LEFT, AMBULATORY TO FRONT LOBBY FOR HIS RIDE HOME. NURSING BEER MERCHANT AND PHYSICIAN NOTIFIED.
== END 2019-01-07 16:05 | disposition left against medical advice (07) | DRG 426 ==
LOC: ED 17:44 → EDHOLD 20:52 → 5E 21:28
PROVIDERS: Physician Assistant; Student in an Organized Health Care Education/Training Program; ADMIT Emergency Medicine
DX: E87.1 Hypo-osmolality and hyponatremia (principal); K85.90 Acute pancreatitis without necrosis or infection, unspecified; D64.9 Anemia, unspecified; E87.6 Hypokalemia; R73.9 Hyperglycemia, unspecified; E87.2 Acidosis; R74.0 Nonspecific elevation of levels of transaminase and lactic acid dehydrogenase [LDH]; Z21 Asymptomatic human immunodeficiency virus [HIV] infection status; Z53.29 Procedure and treatment not carried out because of patient's decision for other reasons; K21.9 Gastro-esophageal reflux disease without esophagitis; E55.9 Vitamin D deficiency, unspecified; I10 Essential (primary) hypertension; E78.5 Hyperlipidemia, unspecified; K86.1 Other chronic pancreatitis; F17.210 Nicotine dependence, cigarettes, uncomplicated; Z71.6 Tobacco abuse counseling; Z83.3 Family history of diabetes mellitus; Z82.49 Family history of ischemic heart disease and other diseases of the circulatory system; Z83.438 Family history of other disorder of lipoprotein metabolism and other lipidemia; Z80.8 Family history of malignant neoplasm of other organs or systems; Z84.89 Family history of other specified conditions

== ENCOUNTER → 2019-03-31 | Outpatient (CLI) | payer OTHER ==
[2019-03-31 13:54] LABS: HEMATOCRIT 42.4 % (42.0-52.0); HEMOGLOBIN 13.8 g/dl (14.0-18.0); MEAN CELL VOLUME 86.4 fl (80.0-94.0); MEAN CORPUSCULAR HGB 28.1 pg (27.0-31.0); MEAN CORPUSCULAR HGB CONC 32.5 g/dl (33.0-37.0); MEAN PLATELET VOLUME 9.7 fl (9.6-12.3); RED BLOOD COUNT 4.91 10*6/uL (4.50-5.90); RED CELL DISTRI WIDTH 14.4 % (0-14.5); WHITE BLOOD COUNT 5.5 10*3/uL (4.8-10.8)
[2019-03-31 14:26] LABS: ALBUMIN 3.8 gm/dl (3.1-4.5); BUN 11 mg/dl (7-24); CHLORIDE 108 mmol/L (98-107); CHOLESTEROL 229 mg/dL (<200); CREATININE 1.11 mg/dL (0.70-1.30); HDL CHOLESTEROL 54 mg/dl (40-60); LDL CHOLESTEROL 156 mg/dL (9-159); POTASSIUM 4.1 mmol/L (3.5-5.1); SGOT/AST 38 IU/L (3-35); SGPT/ALT 65 U/L (12-78); SODIUM 137 mmol/L (136-145); TOTAL PROTEIN 7.9 gm/dL (6.4-8.2); TRIGLYCERIDES 96 mg/dl (<150); VLDL CHOLESTEROL 19 mg/dL (6-40)
[2019-03-31 14:32] LABS: ALKALINE PHOSPHATASE 57 U/L (45-117)
[2019-04-01 05:05] LABS: HEPATITIS B SURFACE AG Negative (Negative)
[2019-04-04 09:43] LABS: HEPATITIS C VIRUS ANTIBODY >11.0 s/co (0.0-0.9)
== END | disposition home or self-care (01) ==
LOC: LAB 13:30
PROVIDERS: Internal Medicine
DX: Z00.00 Encounter for general adult medical examination without abnormal findings (principal); Z21 Asymptomatic human immunodeficiency virus [HIV] infection status; K21.9 Gastro-esophageal reflux disease without esophagitis

== ENCOUNTER 2019-06-28 19:26 | Emergency (ER) | payer OTHER ==
[~2019-06-28] VITALS: Ht 182.8 cm; Wt 83.9 kg
[2019-06-28 20:02] LABS: BASO % 0.1 % (0.0-1.0); EOS # 0.1 10*3/uL (0.0-0.4); EOS % 0.9 % (1.0-4.0); LYMPH # 3.8 10*3/uL (1.3-4.4); MEAN CELL VOLUME 85.7 fl (80.0-94.0); MEAN CORPUSCULAR HGB 28.8 pg (27.0-31.0); MEAN CORPUSCULAR HGB CONC 33.6 g/dl (33.0-37.0); MEAN PLATELET VOLUME 9.8 fl (9.6-12.3); MONO # 0.8 10*3/uL (0.1-1.0); MONO % 7.8 % (3.0-9.0); NEUT # 5.5 10*3/uL (2.3-7.9); NEUT % 53.8 % (47.0-73.0); PLATELET COUNT AUTOMATED 247 10*3/uL (130-400); RED BLOOD COUNT 5.25 10*6/uL (4.50-5.90); RED CELL DISTRI WIDTH 14.8 % (0-14.5); WHITE BLOOD COUNT 10.1 10*3/uL (4.8-10.8)
[2019-06-28 20:19] LABS: ALBUMIN 4.2 gm/dl (3.1-4.5); ALKALINE PHOSPHATASE 69 U/L (45-117); BUN 12 mg/dl (7-24); CHLORIDE 103 mmol/L (98-107); CREATININE 1.35 mg/dL (0.70-1.30); POTASSIUM 3.7 mmol/L (3.5-5.1); SGOT/AST 25 IU/L (3-35); SGPT/ALT 50 U/L (12-78); SODIUM 138 mmol/L (136-145); TOTAL PROTEIN 8.7 gm/dL (6.4-8.2)
[2019-06-28 20:21] LABS: TROPONIN I < 0.015 ng/ml (<0.045)
== END 2019-06-28 23:42 | disposition home or self-care (01) ==
LOC: ED 19:26
PROVIDERS: Emergency Medicine
DX: T65.91XA Toxic effect of unspecified substance, accidental (unintentional), initial encounter (principal); E78.5 Hyperlipidemia, unspecified; I10 Essential (primary) hypertension; F17.200 Nicotine dependence, unspecified, uncomplicated; Y92.89 Other specified places as the place of occurrence of the external cause

== ENCOUNTER 2020-03-09 19:36 | Emergency (ER) | payer OTHER ==
[~2020-03-09] VITALS: Ht 185.4 cm; Wt 74.4 kg
== END 2020-03-09 21:17 | disposition expired ==
LOC: ED 19:36
DX: I46.9 Cardiac arrest, cause unspecified (principal); I10 Essential (primary) hypertension; F17.200 Nicotine dependence, unspecified, uncomplicated; Z79.899 Other long term (current) drug therapy